=== PATIENT | female | born 1995 | race Two or more races ===

== ENCOUNTER 2018-01-22 05:49 | Emergency (ER) | payer BC ==
[2018-01-22] MEDS ORDERED: Ketorolac 30 MG/ML SDV IVPUSH ONE (06:08)
[2018-01-22] MEDS ORDERED: Ketorolac 30 MG/ML SDV ONE (06:10)
[2018-01-22] MEDS ORDERED: Sodium Chloride 0.9% 1,000 ML IV SCH (06:15)
--- NOTE | 2018-01-22 06:19 | EDM.PDOC ---
<SebastianRicco Pretty - Last Filed: 01/22/18 06:17> ED HPI GENERAL MEDICAL PROBLEM - General Chief Complaint: Abdominal Pain Stated Complaint: ABDOMINAL PAIN Time Seen by Provider: 01/22/18 06:16 - History of Present Illness INITIAL COMMENTS - FREE TEXT/NARRATIVE: HISTORY AND PHYSICAL: History of present illness: Patient's 22-year-old female history of polycystic ovarian disease who presents with concern of acute abdominal pain she is scheduled for EGD today. No fever chills vaginal discharge or irregular bleeding other complaints Review of systems: As per history of present illness and below otherwise all systems reviewed and negative. Past medical history: As per history of present illness and as reviewed below otherwise noncontributory. Surgical history: As per history of present illness and as reviewed below otherwise noncontributory. Social history: No reported history of drug or alcohol abuse. Family history: As per history of present illness and as reviewed below otherwise noncontributory. Physical exam: HEENT: Atraumatic, normocephalic, pupils reactive, negative for conjunctival pallor or scleral icterus, mucous membranes moist, throat clear, neck supple, nontender, trachea midline. Lungs: Clear to auscultation, breath sounds equal bilaterally, chest nontender. Heart: S1S2, regular, negative for clicks, rubs, or JVD. Abdomen: Soft, nondistended, no localized tenderness no rebound no guarding. Negative for masses or hepatosplenomegaly. Negative for costovertebral tenderness. Pelvis: Stable nontender. Genitourinary: Deferred. Rectal: Deferred. Extremities: Atraumatic, negative for cords or calf pain. Neurovascular unremarkable. Neuro: Awake, alert, oriented. Cranial nerves II through XII unremarkable. Cerebellum unremarkable. Motor and sensory unremarkable throughout. Exam nonfocal. Diagnostics: CBC CMP UA hCG UDS pelvic ultrasound Therapeutics: Saline 1 L bolus Toradol 30 mg IV Impression: #1 abdominal pain #2 history of polycystic ovarian disease Definitive disposition and diagnosis as appropriate pending reevaluation and review of above. abdomen Pain Score (Numeric/FACES): 10 - Related Data Allergies Allergy/AdvReac Type Severity Reaction Status Date / Time No Known Allergies Allergy Verified 01/22/18 05:57 Home Meds: Home Meds Albuterol [Proair HFA] 1 - 2 puff INH ASDIRECTED PRN 01/19/18 [History] Levonorgestrel [Mirena] 1 device VAG ONETIME 01/19/18 [History] Montelukast Sodium 10 mg PO BEDTIME 01/19/18 [History] Pantoprazole Sodium 40 mg PO DAILY 01/19/18 [History] Venlafaxine [Venlafaxine HCl ER] 225 mg PO DAILY 01/19/18 [History] clonazePAM [Clonazepam] 1 - 2 tab PO BID PRN 01/19/18 [History] Past Medical History HEENT History: Reports: None Cardiovascular History: Reports: None Respiratory History: Reports: None Gastrointestinal History: Reports: None Genitourinary History: Reports: None 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: Reports: Polycystic Ovaries Musculoskeletal History: Reports: None Neurological History: Reports: None Psychiatric History: Reports: None Endocrine/Metabolic History: Reports: None Hematologic History: Reports: None Oncologic (Cancer) History: Reports: None Dermatologic History: Reports: None - Infectious Disease History Infectious Disease History: Reports: None - Past Surgical History Female Surgical History: Reports: None Social & Family History - Family History Family Medical History: Noncontributory - Tobacco Use Smoking Status *Q: Current Every Day Smoker Years of Tobacco use: 10 Packs/Tins Daily: 1 - Recreational Drug Use Recreational Drug Use: No ED ROS GENERAL - Review of Systems Review Of Systems: ROS reveals no pertinent complaints other than HPI. ED EXAM, GENERAL - Physical Exam Exam: See Below (The dictation) Course - Vital Signs Last Recorded V/S: Last Vital Signs Temp 98 F 01/22/18 05:57 Pulse 93 01/22/18 07:48 Resp 18 01/22/18 07:48 BP 115/70 01/22/18 07:48 Pulse Ox 97 01/22/18 07:48 - Orders/Labs/Meds Orders: Active Orders 24 hr Category Date Time Status Abdomen Ltd [US] Stat Exams 01/22/18 06:06 Taken Abdomen Pelvis w wo Cont [CT] Stat Exams 01/22/18 07:13 Taken DRUG SCREEN, URINE [URCHEM] Stat Lab 01/22/18 06:45 Ordered HCG QUALITATIVE,URINE [URCHEM] Stat Lab 01/22/18 06:45 Ordered UA W/MICROSCOPIC [URIN] Stat Lab 01/22/18 06:45 Ordered Sodium Chloride 0.9% [Normal Saline] 1,000 ml Med 01/22/18 06:15 Active IV STAT traMADol [Ultram] Med 01/22/18 08:41 Once 100 mg PO ONETIME ONE Medication Orders Sodium Chloride (Normal Saline) 1,000 mls @ 999 mls/hr IV STAT TIFFANIE Last Admin: 01/22/18 06:00 Dose: 999 mls/hr Labs: Laboratory Tests 01/22/18 01/22/18 01/22/18 Range/Units 05:55 05:55 06:45 WBC 14.99 H (4.0-11.0) K/uL RBC 5.28 (4.30-5.90) M/uL Hgb 15.7 (12.0-16.0) g/dL Hct 44.7 (36.0-46.0) % MCV 84.7 (80.0-98.0) fL MCH 29.7 (27.0-32.0) pg MCHC 35.1 (31.0-37.0) g/dL RDW Std Deviation 40.2 (28.0-62.0) fl RDW Coeff of Tarun 13 (11.0-15.0) % Plt Count 361 (150-400) K/uL MPV 9.70 (7.40-12.00) fL Neut % (Auto) 65.5 (48.0-80.0) % Lymph % (Auto) 22.2 (16.0-40.0) % Vernon % (Auto) 7.7 (0.0-15.0) % Eos % (Auto) 4.4 (0.0-7.0) % Baso % (Auto) 0.2 (0.0-1.5) % Neut # (Auto) 9.8 H (1.4-5.7) K/uL Lymph # (Auto) 3.3 H (0.6-2.4) K/uL Vernon # (Auto) 1.2 H (0.0-0.8) K/uL Eos # (Auto) 0.7 (0.0-0.7) K/uL Baso # (Auto) 0.0 (0.0-0.1) K/uL Nucleated RBC % 0.0 /100WBC Nucleated RBCs # 0 K/uL Sodium 140 (136-145) mmol/L Potassium 3.9 (3.5-5.1) mmol/L Chloride 107 (98-107) mmol/L Carbon Dioxide 20.5 L (21.0-32.0) mmol/L BUN 9 (7.0-18.0) mg/dL Creatinine 0.9 (0.6-1.0) mg/dL Est Cr Clr Drug Dosing 85.38 mL/min Estimated GFR (MDRD) > 60.0 ml/min Glucose 99 (74-106) mg/dL Calcium 9.0 (8.5-10.1) mg/dL Total Bilirubin 0.4 (0.2-1.0) mg/dL AST 14 L (15-37) IU/L ALT 26 (14-63) IU/L Alkaline Phosphatase 107 (46-116) U/L Total Protein 7.7 (6.4-8.2) g/dL Albumin 3.6 (3.4-5.0) g/dL Globulin 4.1 H (2.0-3.5) g/dL Albumin/Globulin Ratio 0.9 L (1.3-2.8) Amylase 33 (25-115) U/L Lipase 80 (73-393) U/L Urine Color ORANGE Urine Appearance CLOUDY Urine pH 5.5 (5.0-8.0) Ur Specific [place] >= 1.030 (1.001-1.035) Urine Protein 30 (NEGATIVE) mg/dL Urine Glucose (UA) NEGATIVE (NEGATIVE) mg/dL Urine Ketones NEGATIVE (NEGATIVE) mg/dL Urine Occult Blood LARGE H (NEGATIVE) Urine Nitrite NEGATIVE (NEGATIVE) Urine Bilirubin SMALL H (NEGATIVE) Urine Ictotest NEGATIVE Urine Urobilinogen 0.2 (<2.0) EU/dL Ur Leukocyte Esterase SMALL (NEGATIVE) Urine RBC 70-80 (0-2/HPF) Urine WBC 3-5 (0-5/HPF) Ur Epithelial Cells FEW (NONE-FEW) Urine Bacteria FEW (NEGATIVE) Urine Mucus LIGHT (NONE-MOD) Urine HCG, Qual (NEGATIVE) Urine Opiates Screen (NEGATIVE) Ur Oxycodone Screen (NEGATIVE) Urine Methadone Screen (NEGATIVE) Ur Barbiturates Screen (NEGATIVE) Ur Phencyclidine Scrn (NEGATIVE) Ur Amphetamine Screen (NEGATIVE) U Methamphetamines Scrn (NEGATIVE) U Benzodiazepines Scrn (NEGATIVE) U Cocaine Metab Screen (NEGATIVE) U Marijuana (THC) Screen (NEGATIVE) 01/22/18 01/22/18 Range/Units 06:45 06:45 WBC (4.0-11.0) K/uL RBC (4.30-5.90) M/uL Hgb (12.0-16.0) g/dL Hct (36.0-46.0) % MCV (80.0-98.0) fL MCH (27.0-32.0) pg MCHC (31.0-37.0) g/dL RDW Std Deviation (28.0-62.0) fl RDW Coeff of Tarun (11.0-15.0) % Plt Count (150-400) K/uL MPV (7.40-12.00) fL Neut % (Auto) (48.0-80.0) % Lymph % (Auto) (16.0-40.0) % Vernon % (Auto) (0.0-15.0) % Eos % (Auto) (0.0-7.0) % Baso % (Auto) (0.0-1.5) % Neut # (Auto) (1.4-5.7) K/uL Lymph # (Auto) (0.6-2.4) K/uL Vernon # (Auto) (0.0-0.8) K/uL Eos # (Auto) (0.0-0.7) K/uL Baso # (Auto) (0.0-0.1) K/uL Nucleated RBC % /100WBC Nucleated RBCs # K/uL Sodium (136-145) mmol/L Potassium (3.5-5.1) mmol/L Chloride (98-107) mmol/L Carbon Dioxide (21.0-32.0) mmol/L BUN (7.0-18.0) mg/dL Creatinine (0.6-1.0) mg/dL Est Cr Clr Drug Dosing mL/min Estimated GFR (MDRD) ml/min Glucose (74-106) mg/dL Calcium (8.5-10.1) mg/dL Total Bilirubin (0.2-1.0) mg/dL AST (15-37) IU/L ALT (14-63) IU/L Alkaline Phosphatase (46-116) U/L Total Protein (6.4-8.2) g/dL Albumin (3.4-5.0) g/dL Globulin (2.0-3.5) g/dL Albumin/Globulin Ratio (1.3-2.8) Amylase (25-115) U/L Lipase (73-393) U/L Urine Color Urine Appearance Urine pH (5.0-8.0) Ur Specific [place] (1.001-1.035) Urine Protein (NEGATIVE) mg/dL Urine Glucose (UA) (NEGATIVE) mg/dL Urine Ketones (NEGATIVE) mg/dL Urine Occult Blood (NEGATIVE) Urine Nitrite (NEGATIVE) Urine Bilirubin (NEGATIVE) Urine Ictotest Urine Urobilinogen (<2.0) EU/dL Ur Leukocyte Esterase (NEGATIVE) Urine RBC (0-2/HPF) Urine WBC (0-5/HPF) Ur Epithelial Cells (NONE-FEW) Urine Bacteria (NEGATIVE) Urine Mucus (NONE-MOD) Urine HCG, Qual NEGATIVE (NEGATIVE) Urine Opiates Screen NEGATIVE (NEGATIVE) Ur Oxycodone Screen NEGATIVE (NEGATIVE) Urine Methadone Screen NEGATIVE (NEGATIVE) Ur Barbiturates Screen NEGATIVE (NEGATIVE) Ur Phencyclidine Scrn POSITIVE (NEGATIVE) Ur Amphetamine Screen NEGATIVE (NEGATIVE) U Methamphetamines Scrn NEGATIVE (NEGATIVE) U Benzodiazepines Scrn NEGATIVE (NEGATIVE) U Cocaine Metab Screen NEGATIVE (NEGATIVE) U Marijuana (THC) Screen NEGATIVE (NEGATIVE) Meds: Medications Generic Name Dose Route Start Last Admin Trade Name Freq PRN Reason Stop Dose Admin Sodium Chloride 1,000 mls @ 999 mls/hr 01/22/18 06:15 01/22/18 06:00 Normal Saline IV 999 mls/hr STAT TIFFANIE Administration Discontinued Medications Generic Name Dose Route Start Last Admin Trade Name Freq PRN Reason Stop Dose Admin Iopamidol 100 ml 01/22/18 07:26 01/22/18 07:35 Isovue Multipack-370 (76%) IVPUSH 01/22/18 07:27 100 ml ONETIME STA Administration Iopamidol 200 ml 01/22/18 07:34 Isovue Multipack-370 (76%) IVPUSH 01/22/18 07:35 ONETIME STA Ketorolac Tromethamine 30 mg 01/22/18 06:08 01/22/18 06:11 Toradol IVPUSH 01/22/18 06:09 30 mg ONETIME ONE Administration Ketorolac Tromethamine Confirm 01/22/18 06:10 01/22/18 06:20 Toradol Administered 01/22/18 06:11 Not Given Dose 30 mg .ROUTE .STK-MED ONE Departure - Departure Disposition: Home, Self-Care 01 Clinical Impression: Abdominal pain, Ovarian cyst - Discharge Information Referrals: Katalina Ann, SAFETY PIN ASSEMBLING MACHINE OPERATOR [Primary Care Provider] - Forms: ED Department Discharge Additional Instructions: Medication as prescribed Return if symptoms persist or worsen Follow-up with [facility], call phone number below to schedule appropriate follow-up [facility] [address] [address] The following information is given to patients seen in the emergency department who are being discharged to home. This information is to outline your options for follow-up care. We provide all patients seen in our emergency department with a follow-up referral. The need for follow-up, as well as the timing and circumstances, are variable depending upon the specifics of your emergency department visit. If you don't have a primary care physician on staff, we will provide you with a referral. We always advise you to contact your personal physician following an emergency department visit to inform them of the circumstance of the visit and for follow-up with them and/or the need for any referrals to a consulting specialist. The emergency department will also refer you to a specialist when appropriate. This referral assures that you have the opportunity for follow-up care with a specialist. All of these measure are taken in an effort to provide you with optimal care, which includes your follow-up. Under all circumstances we always encourage you to contact your private physician who remains a resource for coordinating your care. When calling for follow-up care, please make the office aware that this follow-up is from your recent emergency room visit. If for any reason you are refused follow-up, please contact the [facility] emergency department at and asked to speak to the emergency department charge nurse. - My Orders Last 24 Hours: My Active Orders 01/22/18 07:13 Abdomen Pelvis w wo Cont [CT] Stat 01/22/18 08:41 traMADol [Ultram] 100 mg PO ONETIME ONE - Assessment/Plan Last 24 Hours: My Active Orders 01/22/18 07:13 Abdomen Pelvis w wo Cont [CT] Stat 01/22/18 08:41 traMADol [Ultram] 100 mg PO ONETIME ONE <Param Sanders - Last Filed: 01/22/18 08:46> ED HPI GENERAL MEDICAL PROBLEM - History of Present Illness INITIAL COMMENTS - FREE TEXT/NARRATIVE: I've seen and examined the patient and agree with above No fever nausea vomiting chills sweats at current Gen. no acute distress HEENT grossly within normal limits Chest clear CV regular Abdodomen soft, no localized tenderness no rebound or guarding bowel sounds present in all 4 quadrants Extremities four-inch motion strength 5 out of 5 no edema LOOM MECHANIC alert nonfocal Lab as below Right upper quadrant ultrasound CT abdomen pelvis with and without contrast Assessment Left ovarian cyst Plan Tramadol 50 mg by mouth 3 times a day when necessary #30 no refill 100 mg by mouth now follow-up with [facility] definitive disposition and diagnosis as appropriate pending reevaluation and review of above Departure - Departure Time of Disposition: 08:45 Condition: Good
[2018-01-22 06:37] LABS: CHLORIDE,CL 107 mmol/L (98-107); SODIUM,NA 140 mmol/L (136-145)
[2018-01-22] MEDS: Iopamidol 755 MG/ML 500 ML Multipack Bottle IVPUSH STA ×2 (07:26→07:35)
[2018-01-22] MEDS ORDERED: Iopamidol 755 MG/ML 200 ML Multipack Bottle IVPUSH STA (07:34)
[2018-01-22] MEDS: traMADol 50 MG Tab PO ONE ×2 (09:00→09:04)
--- NOTE | 2018-01-22 13:00 | US ---
EXAM DATE: 01/22/18 PATIENT'S AGE: 22 Patient: MALOU BURGOS Facility: [place], [place] Site . Site : 1996 Study: US Abdomen [id number]/3/2018 6:53:11 AM Ordering Physician: Sebastian Chacko Final Report: INDICATION: Abdominal pain TECHNIQUE: Ultrasound abdomen limited. Sonographic images of the right upper quadrant were obtained using gómez-scale and color Doppler images. COMPARISON: None FINDINGS: Liver: Normal in size and echotexture. No masses. No intrahepatic biliary dilatation. Gallbladder: No stones or sludge. Normal wall thickness. No pericholecystic fluid. Common bile duct: 3 mm. Pancreas: Normal. Right kidney: Normal in size. Normal echotexture and cortex. No masses, stones, or hydronephrosis. IMPRESSION: Unremarkable right upper quadrant ultrasound. Dictated by Eddie Cardona MD @ Jan 22 2018 6:53AM (Electronic Signature) Report Signed by Proxy. LOUIE
--- NOTE | 2018-01-22 13:01 | CT ---
EXAM DATE: 01/22/18 PATIENT'S AGE: 22 Patient: MALOU BURGOS Facility: [place], [place] Site . Site : 1995 Study: CT Abdomen/Pelvis W/ and W/O Cont [id number]/3/2018 7:46:12 AM Ordering Physician: Sebastian Chacko Final Report: INDICATION: Abdominal pain TECHNIQUE: CT abdomen and pelvis acquired without and with 100 cc Isovue 370 IV contrast. COMPARISON: None. FINDINGS: Lower chest: Unremarkable. Liver: Unremarkable. Normal in size and attenuation. No masses. Gallbladder and bile ducts: Unremarkable. No stones or inflammation. No biliary dilatation. Pancreas: Unremarkable. No mass or inflammation. Spleen: Unremarkable. Normal in size. No masses. Adrenal glands: Unremarkable. No nodules. Kidneys: Unremarkable. No masses, stones, or hydronephrosis. GI tract: Unremarkable. Normal in caliber. No sign of mass or inflammation. Normal appendix. Vasculature: Unremarkable. Lymph nodes: No lymphadenopathy. Omentum/Peritoneum/Abdominal Wall: Unremarkable. No sign of mass or infiltration. No free air or significant free fluid. Pelvis: IUD appears in satisfactory position. There is a 3.5 cm simple left ovarian cyst. Right ovary is normal. Bones: Unremarkable for age. IMPRESSION: 1. Left ovarian simple 3.5 cm cyst without evidence of rupture. 2. Remainder of the exam is unremarkable. No other acute or specific finding to explain abdomen pain. Please note that all CT scans at this facility use dose modulation, iterative reconstruction, and/or weight-based dosing when appropriate to reduce radiation dose to as low as reasonably achievable. Dictated by Eddie Cardona MD @ Jan 22 2018 8:01AM (Electronic Signature) Report Signed by Proxy. [facility]
== END 2018-01-22 09:04 | disposition home or self-care (01) ==
LOC: MW.ED 05:49
DX: N83.202 Unspecified ovarian cyst, left side (principal); F17.210 Nicotine dependence, cigarettes, uncomplicated; Z79.899 Other long term (current) drug therapy
CPT/HCPCS: 36415; 74178; 76705; 80053; 80305; 81001; 81025; 82150; 83690; 85025; 96361; 96374; 99284; J1885; J7040; Q9967; 99283; A9270-GY

== ENCOUNTER 2018-06-01 06:43 | Day surgery (SDC) | payer BC ==
[~2018-06-01 06:43] MED LIST: Lactated Ringers 1,000 ML IV SCH
--- NOTE | 2018-06-01 07:17 | PCM.PREANE ---
Preanesthetic Assessment - Anesthesia/Transfusion/Family Hx Anesthesia History: No Prior Anesthesia Family History of Anesthesia Reaction: No Transfusion History: No Prior Transfusion(s) - Review of Systems General: No Symptoms Pulmonary: No Symptoms Cardiovascular: No Symptoms Gastrointestinal: No Symptoms Neurological: No Symptoms Other: Reports: Anxiety - Physical Assessment NPO Status Date: 05/31/18 Height: 1.63 m Weight: 116.12 kg ASA Class: 2 Mental Status: Alert & Oriented x3 Airway Class: Mallampati = 2 Dentition: Reports: Normal Dentition ROM/Head Extension: Full Lungs: Clear to Auscultation, Normal Respiratory Effort Cardiovascular: Regular Rate, Regular Rhythm - Lab Values: Laboratory Last Values WBC 6.97 K/uL (4.0-11.0) 05/31/18 13:39 RBC 4.88 M/uL (4.30-5.90) 05/31/18 13:39 Hgb 14.2 g/dL (12.0-16.0) 05/31/18 13:39 Hct 41.6 % (36.0-46.0) 05/31/18 13:39 MCV 85.2 fL (80.0-98.0) 05/31/18 13:39 MCH 29.1 pg (27.0-32.0) 05/31/18 13:39 MCHC 34.1 g/dL (31.0-37.0) 05/31/18 13:39 RDW Std Deviation 43.8 fl (28.0-62.0) 05/31/18 13:39 RDW Coeff of Tarun 14 % (11.0-15.0) 05/31/18 13:39 Plt Count 323 K/uL (150-400) 05/31/18 13:39 MPV 9.20 fL (7.40-12.00) 05/31/18 13:39 Nucleated RBC % 0.0 /100WBC 05/31/18 13:39 Nucleated RBCs # 0 K/uL 05/31/18 13:39 HCG, Qual NEGATIVE (NEG) 05/31/18 13:39 - Allergies Allergies/Adverse Reactions: Allergies Allergy/AdvReac Type Severity Reaction Status Date / Time No Known Allergies Allergy Verified 05/28/18 09:46 - Anesthesia Plan Pre-Op Medication Ordered: None - Acknowledgements Anesthesia Type Planned: MAC Pt an Appropriate Candidate for the Planned Anesthesia: Yes Alternatives and Risks of Anesthesia Discussed w Pt/Guardian: Yes Pt/Guardian Understands and Agrees with Anesthesia Plan: Yes Additional Comments: PMH: PCOS, anxiety, GERD, migraine, PreAnesthesia Questionnaire HEENT History: Reports: None Cardiovascular History: Reports: None Respiratory History: Reports: Asthma Gastrointestinal History: Reports: GERD Genitourinary History: Reports: None BENEFITS CONSULTANT History: Reports: Endometriosis, Polycystic Ovaries Musculoskeletal History: Reports: None Neurological History: Reports: Migraines Psychiatric History: Reports: Anxiety, Depression Endocrine/Metabolic History: Reports: Hypothyroidism, Obesity/BMI 30+ Hematologic History: Reports: None Immunologic History: Reports: None Oncologic (Cancer) History: Reports: None Dermatologic History: Reports: None - Infectious Disease History Infectious Disease History: Reports: None - Past Surgical History Head Surgeries/Procedures: Reports: None Female Surgical History: Reports: None - SUBSTANCE USE Smoking Status *Q: Light Tobacco Smoker Tobacco Use Within Last Twelve Months: Cigarettes Recreational Drug Use History: No - HOME MEDS Home Medications: Home Meds Albuterol [Proventil Neb Soln] 1.25 mg NEB Q2H PRN 04/20/18 [History] Venlafaxine HCl [Venlafaxine HCl ER] 225 mg PO DAILY 04/20/18 [History] ARIPiprazole [Abilify] 10 mg PO DAILY 05/28/18 [History] Albuterol Sulfate [Proair Hfa] 2 puff INH ASDIRECTED PRN 05/28/18 [History] Loratadine [Claritin] 10 mg PO DAILY 05/28/18 [History] Melatonin 10 mg SL BEDTIME 05/28/18 [History] Montelukast [Singulair] 10 mg PO DAILY 05/28/18 [History] Pantoprazole Sodium 40 mg PO DAILY 05/28/18 [History] Sucralfate 1 tab PO TID 05/28/18 [History] clonazePAM [Clonazepam] 1 - 2 tab PO BID PRN 05/28/18 [History] - CURRENT (IN HOUSE) MEDS Current Meds: Current Medications Lactated Ringer's (Ringers, Lactated) 1,000 mls @ 125 mls/hr IV ASDIRECTED TIFFANIE Last Admin: 06/01/18 07:13 Dose: 125 mls/hr
[2018-06-01] MEDS ORDERED: Rocuronium 10 MG/ML 10 ML Syringe ONE (07:21)
[2018-06-01] MEDS ORDERED: Lidocaine 2% 5 ML SDV ONE (07:21)
[2018-06-01] MEDS ORDERED: Ondansetron 4 MG/2 ML SDV ONE (07:21)
[2018-06-01] MEDS ORDERED: Midazolam 1 MG/ML 2 ML SDV ONE ×2 (07:22)
[2018-06-01] MEDS ORDERED: Ketamine 500 mg/10 ML MDV ONE (07:22)
[2018-06-01] MEDS ORDERED: Propofol 200 MG/20 ML SDV ONE (07:22)
[2018-06-01] MEDS ORDERED: fentaNYL 250 MCG/5 ML SDV ONE (07:22)
[2018-06-01] MEDS ORDERED: Bupivacaine 0.25% 10 ML SDV ONE (07:39)
[2018-06-01] MEDS ORDERED: diphenhydrAMINE 50 MG/ML SDV ONE (07:42)
[2018-06-01] MEDS ORDERED: Dexamethasone 4 MG/ML 5 ML MDV ONE (07:42)
[2018-06-01] MEDS ORDERED: Scopolamine 1.5 MG Transdermal Patch ONE (07:42)
[2018-06-01] MEDS ORDERED: fentaNYL 100 MCG/2 ML SDV IVPUSH PRN (08:50)
[2018-06-01] MEDS ORDERED: HYDROmorphone 2 MG/ML SDV IVPUSH PRN (08:50)
[2018-06-01] MEDS ORDERED: Glycopyrrolate 0.2 MG/ML SDV ONE (09:20)
[2018-06-01] MEDS ORDERED: Neostigmine Methylsulfate 1 MG/ML 5 ML Syringe ONE (09:20)
--- NOTE | 2018-06-01 09:44 | PCM.OPNOTE ---
- General Post-Op/Procedure Note Date of Surgery/Procedure: 06/01/18 Operative Procedure(s): Operative laparoscopy, adhesiolysis of left ovarian/ uterine/mesenteric adhesions, left ovarian cyst aspiration, left ovary biopsy Findings: Dense left ovarian/uterine/mesenteric adhesions. No specific endometriosis implants visualized. Pre Op Diagnosis: Pelvic pain Post-Op Diagnosis: Same Anesthesia Technique: General ET Tube Primary Surgeon: Dalila [place] Tax Assessor: Richard Whitley Pathology: ovarian cyst fluid and left ovarian biopsy Fluid Replacement, Intraop: 2,800 EBL in mLs: 25 Complications: none known Condition: Good Free Text/Narrative:: Dictation [id number]
--- NOTE | 2018-06-01 10:32 | PCM.POSTAN ---
POST ANESTHESIA ASSESSMENT - MENTAL STATUS Mental Status: Alert, Oriented - RESPIRATORY Respiratory Status: Respiratory Rate WNL, Airway Patent, O2 Saturation Stable - CARDIOVASCULAR CV Status: Pulse Rate WNL, Blood Pressure Stable - GASTROINTESTINAL GI Status: No Symptoms - PAIN Pain Score: 5 (resting comfortably) - POST OP HYDRATION Hydration Status: Adequate & Stable - OBSERVATIONS Free Text/Narrative:: No nausea and pain appears well controlled
--- NOTE | 2018-06-01 10:40 | PCM48HPAN ---
Post Anesthesia Note - EVALUATION WITHIN 48HRS OF ANESTHETIC Vital Signs in Normal Range: Yes Patient Participated in Evaluation: Yes Respiratory Function Stable: Yes Airway Patent: Yes Cardiovascular Function Stable: Yes Hydration Status Stable: Yes Pain Control Satisfactory: Yes Nausea and Vomiting Control Satisfactory: Yes Mental Status Recovered: Yes Resp Rate: 21
[2018-06-01] MEDS ORDERED: Acetaminophen/oxyCODONE 325-5 MG Tab PO ONE (11:18)
--- NOTE | 2018-06-01 13:17 | OR ---
SURGEON: Dalila Mckinney M.D. DATE OF PROCEDURE: 06/01/2018 PREOPERATIVE DIAGNOSIS: Pelvic pain. POSTOPERATIVE DIAGNOSIS: Pelvic pain. PROCEDURES: Operative laparoscopy; adhesiolysis of left ovarian, uterine, mesenteric adhesion; left ovarian cyst aspiration; left ovarian biopsy. DOCUMENT COORDINATOR: VICKI Mendoza. ANESTHESIA: General endotracheal anesthesia. FLUIDS: 2800 mL crystalloid. ESTIMATED BLOOD LOSS: 25 mL. COMPLICATIONS: None known. DISPOSITION: The patient to PACU stable. SPECIMEN: To pathology. PROCEDURE IN DETAIL: Leyla is a 23-year-old nulligravida who has ongoing difficulties with pelvic pain for a number of years. She has tried different pathology treatment in form of combination of hormone therapy with OCPs, Depo-Provera, NSAIDs with no relief of her symptomatology. At this juncture, she has not undergone any further evaluation surgically. Pelvic ultrasound has been notably normal. Therefore, at this time, we discussed proceeding with further evaluation with laparoscopy. She very much would like to proceed in this direction. The risks of procedure were discussed with her, proper consent obtained. The patient was taken to the operating room where she underwent general endotracheal anesthesia and was placed in modified dorsal lithotomy position, was prepped and draped in the usual sterile fashion. SCDs to lower extremities. Bladder was drained. Time-out was performed. A weighted speculum was introduced in the vagina. Uterine Hulka manipulator was gently introduced and the speculum was removed. Gloves changed. Attention turned abdominally. Infraumbilically, 0.25% Marcaine was introduced followed by infraumbilical midline sagittal 5 mm skin incision. The anterior abdominal wall tented upward. A Veress needle gently introduced and pneumoperitoneum was achieved. The Veress needle was removed. A 5-mm trocar was introduced, laparoscope was introduced, and peritoneal contents were identified. With Trendelenburg positioning, uterus was able to be mobilized. Placed a left lower quadrant trocar after prepping the region with 0.25% Marcaine creating 5 mm skin incision. Using grasper, I was able to further evaluate the pelvic anatomy. Overall, the uterus was mobile. The right tube and ovary appeared normal as well as the pelvic sidewalls, anterior, and posterior cul-de-sac. However, the left ovary is significantly adhesed to the posterior uterus from the mesentery. Therefore, using dissection bluntly and with the Harmonic Jose, I was able to perform adhesiolysis for approximately 35 minutes. At this juncture, I was able to mobilize and free the ovary. The pelvis was now copiously irrigated. There appears to be a physiologic left ovarian cyst present, this was gently drained using an 18-mm laparoscopic needle. Clear fluid was returned, to be sent to Pathology for further analysis. Left ovarian biopsy was also performed, the specimen will to be sent to pathology. The pelvis continued to be copiously irrigated. As noted, no other lesions or implants were visualized. Upper abdomen reveals no pathology. The areas of oozing were cauterized and then the ovary was wrapped in Surgicel. Hemostasis appeared evident at this time. The pneumoperitoneum was now released. The right and left lower quadrant trocars removed under direct visualization. The laparoscope was removed as well as the infraumbilical trocar after as much of the pneumoperitoneum as possible was able to be released from the abdominal cavity. The skin edges were reapproximated using 3-0 Monocryl in subcuticular fashion. Dressings were placed. The Hulka uterine manipulator was now gently removed. The cervix was visualized and appeared to be hemostatic. Sponge, instrument, and needle count was correct x2. The patient tolerated the procedure well overall. She will go to PACU in stable condition. Specimens to pathology. BRYON FITZGERALD /[id number]
== END 2018-06-01 14:15 | disposition home or self-care (01) ==
LOC: MW.SDS 06:43
PROVIDERS: ATTEND Obstetrics & Gynecology
DX: R10.2 Pelvic and perineal pain (principal); N83.02 Follicular cyst of left ovary; N73.6 Female pelvic peritoneal adhesions (postinfective); J45.909 Unspecified asthma, uncomplicated; E66.9 Obesity, unspecified; Z68.41 Body mass index [BMI] 40.0-44.9, adult; F17.210 Nicotine dependence, cigarettes, uncomplicated; E03.9 Hypothyroidism, unspecified; G50.0 Trigeminal neuralgia; E28.2 Polycystic ovarian syndrome; F41.8 Other specified anxiety disorders; Z79.84 Long term (current) use of oral hypoglycemic drugs; Z79.899 Other long term (current) drug therapy
CPT/HCPCS: 49321; 49322; 84703; 85027; 88104; 88305; A9270; J1100; J1200; J2250; J2405; J2704; J3010; J3490; J7120; 00840

== ENCOUNTER 2018-06-04 05:13 | Emergency (ER) | payer BC ==
--- NOTE | 2018-06-04 05:21 | EDM.PDOC ---
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 Mckinney during which she had adhesional lysis performed of areas at the left ovary, left uterine wall and left mesenteric adhesions as well as a left ovarian cyst aspiration and left ovarian biopsy. Patient presents today to the ED stating that since the surgery she has had vaginal spotting that she was told to expect but then yesterday she noticed that she was passing clots and contacted the clinic office to discuss the situation with Dr. Mckinney's nurse. She was told to be on bed rest and push hydration and to monitor the symptoms and if they continue to come to the ED. She says she is continuing to pass clots and feels that she has had more bleeding than should be expected and she has diffuse lower abdominal/pelvic pain. She's not had a fever nausea or vomiting but she says that she is having trouble passing her urine and she feels like she has to push it out. She also says there is discomfort with urination but no discrete flank pain. According to mom at bedside the surgery was very complicated due to the significant amount of adhesions on the left side and the size of the left ovarian cyst. She is currently taking pain meds for pain. The patient did talk to the clinic nurse yesterday but she has not spoken to the on-call physician about her symptoms that brought her here this morning. She says that from when she talked to the nurse yesterday afternoon until 1 AM she was using 2 pads an hour and from 1 AM until 5 AM 4 pads an hour and passing half-dollar size clots intermittently. Review of systems: As per history of present illness and below otherwise all systems reviewed and negative. Past medical history: As per history of present illness and as reviewed below otherwise noncontributory. Surgical history: As per history of present illness and as reviewed below otherwise noncontributory. Social history: No reported history of drug or alcohol abuse. Family history: As per history of present illness and as reviewed below otherwise noncontributory. Physical exam: General: Well-developed well-nourished overweight female who is nontoxic and vital signs were noted by me. HEENT: Atraumatic, normocephalic, , negative for conjunctival pallor or scleral icterus, mucous membranes moist, throat clear, neck supple, nontender, trachea midline. Lungs: Clear to auscultation, breath sounds equal bilaterally, chest nontender. Heart: S1S2, regular rate and rhythm no overt murmurs Abdomen: Soft, nondistended, the incision from the laparoscopy are clean and dry with dressings intact and there is some ecchymosis seen in the anterior inferior abdominal wall. There is hypoactive bowel sounds and diffuse lower abdominal tenderness on palpation without any focality. Negative for masses or hepatosplenomegaly. Pelvis: Stable nontender. Genitourinary: External genitalia are within normal limits. There is a small amount of blood and clot in the vaginal vault and the cervix is nulliparous appearing with a slight trickle per os but no aggressive bleeding. The uterus is difficult to evaluate as the patient doesn't tolerate the exam well due to abdominal discomfort. Rectal: Deferred. Extremities: Atraumatic, negative for cords or calf pain. Neurovascular unremarkable. Neuro: Awake, alert, oriented. Cranial nerves II through XII unremarkable. Cerebellum unremarkable. Motor and sensory unremarkable throughout. Exam nonfocal. Diagnostics: CBC CMP hCG UA orthostatic vitals bladder scan Therapeutics: IV IV fluids Patient's bladder scan revealed 150 mL of urine and the patient is currently voiding for urine sample. Orthostatic vitals were positive for heart rate but blood pressure did not change with the heart rate going from 73 laying to standing at 110 and no significant change in blood pressure. She felt a little lightheaded with position change Patient's hemoglobin on the day of her surgery was 14.2 and today it is 12.6 and on a prior visit at the end of March it was 13.7 0608: Case was d/w Dr Vidal who is going to pull up her records and recontact me with a plan. 0625: Dr Vidal has reviewed the patient's records and would like a pelvic ultrasound to be done. From the operative report she does not feel that any significant bleeding would have come from this surgery and would like to just be safe and do the ultrasound. She feels that this may likely be the patient's menstrual cycle. She would like to be recontacted with that test result and will also send a message to Dr. Mckinney's nurse. If the ultrasound is negative she feels that the patient is safe to go home. 0700: Pelvic ultrasound was ordered and endorsed to Dr. Helton. She will follow up this result and recontact Dr. Vidal with the testing results and plan for disposition according to those results and her instructions. Impression: Postoperative vaginal bleeding status post laparoscopy with lysis of adhesions and ovarian cyst decompression Definitive disposition and diagnosis as appropriate pending reevaluation and review of above. Bilateral Lower Abdominal Pain Score (Numeric/FACES): 8 - Related Data Allergies Allergy/AdvReac Type Severity Reaction Status Date / Time No Known Allergies Allergy Verified 05/28/18 09:46 Home Meds: Home Meds Albuterol [Proventil Neb Soln] 1.25 mg NEB Q2H PRN 04/20/18 [History] Venlafaxine HCl [Venlafaxine HCl ER] 225 mg PO DAILY 04/20/18 [History] ARIPiprazole [Abilify] 10 mg PO DAILY 05/28/18 [History] Albuterol Sulfate [Proair Hfa] 2 puff INH ASDIRECTED PRN 05/28/18 [History] Loratadine [Claritin] 10 mg PO DAILY 05/28/18 [History] Melatonin 10 mg SL BEDTIME 05/28/18 [History] Montelukast [Singulair] 10 mg PO DAILY 05/28/18 [History] Pantoprazole Sodium 40 mg PO DAILY 05/28/18 [History] Sucralfate 1 tab PO TID 05/28/18 [History] clonazePAM [Clonazepam] 1 - 2 tab PO BID PRN 05/28/18 [History] Past Medical History HEENT History: Reports: None Cardiovascular History: Reports: None Respiratory History: Reports: Asthma Gastrointestinal History: Reports: GERD Genitourinary History: Reports: None [employer]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[employer] History: Reports: Endometriosis, Polycystic Ovaries Musculoskeletal History: Reports: None Neurological History: Reports: Migraines Psychiatric History: Reports: Anxiety, Depression Endocrine/Metabolic History: Reports: Hypothyroidism, Obesity/BMI 30+ Hematologic History: Reports: None Immunologic History: Reports: None Oncologic (Cancer) History: Reports: None Dermatologic History: Reports: None - Infectious Disease History Infectious Disease History: Reports: None - Past Surgical History Head Surgeries/Procedures: Reports: None Female Surgical History: Reports: None Social & Family History - Family History Family Medical History: Noncontributory ED ROS GENERAL - Review of Systems Review Of Systems: ROS reveals no pertinent complaints other than HPI. ED EXAM, GENERAL - Physical Exam Exam: See Below (see dictation) Course - Vital Signs Last Recorded V/S: Last Vital Signs Temp 98.9 F 06/04/18 05:22 Pulse 78 06/04/18 05:22 Resp 18 06/04/18 05:22 BP 161/85 H 06/04/18 05:22 Pulse Ox 96 06/04/18 05:22 Orthostatic Blood Pressure [ 120/69 Standing] Orthostatic Blood Pressure [ 110/75 Sitting] Orthostatic Blood Pressure [ 115/61 Supine] - Orders/Labs/Meds Orders: Active Orders 24 hr Category Date Time Status Bladder Scan [RC] ASDIRECTED Care 06/04/18 05:36 Active Orthostatic Vital Signs [RC] ASDIRECTED Care 06/04/18 05:36 Active Pelvis Non OB Comp [US] Stat Exams 06/04/18 06:27 Taken Sodium Chloride 0.9% [Normal Saline] 1,000 ml Med 06/04/18 07:45 Active IV .Bolus Sodium Chloride 0.9% [Saline Flush] Med 06/04/18 05:25 Active 10 ml FLUSH ASDIRECTED PRN Sodium Chloride 0.9% [Saline Flush] Med 06/04/18 05:25 Active 2.5 ml FLUSH ASDIRECTED PRN Saline Lock Insert [OM.PC] Stat Oth 06/04/18 05:25 Ordered Medication Orders Sodium Chloride (Normal Saline) 1,000 mls @ 999 mls/hr IV .Bolus ONE Stop: 06/04/18 08:45 Last Admin: 06/04/18 07:50 Dose: 999 mls/hr Sodium Chloride (Saline Flush) 10 ml FLUSH ASDIRECTED PRN PRN Reason: Keep Vein Open Last Admin: 06/04/18 07:51 Dose: 10 ml Sodium Chloride (Saline Flush) 2.5 ml FLUSH ASDIRECTED PRN PRN Reason: Keep Vein Open Last Admin: 06/04/18 07:50 Dose: 2.5 ml Labs: Laboratory Tests 06/04/18 06/04/18 06/04/18 Range/Units 05:42 05:42 05:42 WBC 11.22 H (4.0-11.0) K/uL RBC 4.37 (4.30-5.90) M/uL Hgb 12.6 (12.0-16.0) g/dL Hct 37.6 (36.0-46.0) % MCV 86.0 (80.0-98.0) fL MCH 28.8 (27.0-32.0) pg MCHC 33.5 (31.0-37.0) g/dL RDW Std Deviation 44.3 (28.0-62.0) fl RDW Coeff of Tarun 14 (11.0-15.0) % Plt Count 288 (150-400) K/uL MPV 9.20 (7.40-12.00) fL Neut % (Auto) 57.2 (48.0-80.0) % Lymph % (Auto) 29.8 (16.0-40.0) % [place] % (Auto) 8.9 (0.0-15.0) % Eos % (Auto) 3.7 (0.0-7.0) % Baso % (Auto) 0.4 (0.0-1.5) % Neut # (Auto) 6.4 H (1.4-5.7) K/uL Lymph # (Auto) 3.3 H (0.6-2.4) K/uL [place] # (Auto) 1.0 H (0.0-0.8) K/uL Eos # (Auto) 0.4 (0.0-0.7) K/uL Baso # (Auto) 0.0 (0.0-0.1) K/uL Nucleated RBC % 0.0 /100WBC Nucleated RBCs # 0 K/uL Sodium 138 (136-145) mmol/L Potassium 3.8 (3.5-5.1) mmol/L Chloride 103 (98-107) mmol/L Carbon Dioxide 27.2 (21.0-32.0) mmol/L BUN 9 (7.0-18.0) mg/dL Creatinine 0.8 (0.6-1.0) mg/dL Est Cr Clr Drug Dosing 95.25 mL/min Estimated GFR (MDRD) > 60.0 ml/min Glucose 91 (74-106) mg/dL Calcium 8.8 (8.5-10.1) mg/dL Total Bilirubin 0.3 (0.2-1.0) mg/dL AST 11 L (15-37) IU/L ALT 23 (14-63) IU/L Alkaline Phosphatase 93 (46-116) U/L Total Protein 6.5 (6.4-8.2) g/dL Albumin 3.1 L (3.4-5.0) g/dL Globulin 3.4 (2.0-3.5) g/dL Albumin/Globulin Ratio 0.9 L (1.3-2.8) HCG, Qual NEGATIVE (NEG) Urine Color Urine Appearance Urine pH (5.0-8.0) Ur Specific [place] (1.001-1.035) Urine Protein (NEGATIVE) mg/dL Urine Glucose (UA) (NEGATIVE) mg/dL Urine Ketones (NEGATIVE) mg/dL Urine Occult Blood (NEGATIVE) Urine Nitrite (NEGATIVE) Urine Bilirubin (NEGATIVE) Urine Urobilinogen (<2.0) EU/dL Ur Leukocyte Esterase (NEGATIVE) Urine RBC (0-2/HPF) Urine WBC (0-5/HPF) Ur Epithelial Cells (NONE-FEW) Urine Bacteria (NEGATIVE) 06/04/18 Range/Units 05:52 WBC (4.0-11.0) K/uL RBC (4.30-5.90) M/uL Hgb (12.0-16.0) g/dL Hct (36.0-46.0) % MCV (80.0-98.0) fL MCH (27.0-32.0) pg MCHC (31.0-37.0) g/dL RDW Std Deviation (28.0-62.0) fl RDW Coeff of Tarun (11.0-15.0) % Plt Count (150-400) K/uL MPV (7.40-12.00) fL Neut % (Auto) (48.0-80.0) % Lymph % (Auto) (16.0-40.0) % [place] % (Auto) (0.0-15.0) % Eos % (Auto) (0.0-7.0) % Baso % (Auto) (0.0-1.5) % Neut # (Auto) (1.4-5.7) K/uL Lymph # (Auto) (0.6-2.4) K/uL [place] # (Auto) (0.0-0.8) K/uL Eos # (Auto) (0.0-0.7) K/uL Baso # (Auto) (0.0-0.1) K/uL Nucleated RBC % /100WBC Nucleated RBCs # K/uL Sodium (136-145) mmol/L Potassium (3.5-5.1) mmol/L Chloride (98-107) mmol/L Carbon Dioxide (21.0-32.0) mmol/L BUN (7.0-18.0) mg/dL Creatinine (0.6-1.0) mg/dL Est Cr Clr Drug Dosing mL/min Estimated GFR (MDRD) ml/min Glucose (74-106) mg/dL Calcium (8.5-10.1) mg/dL Total Bilirubin (0.2-1.0) mg/dL AST (15-37) IU/L ALT (14-63) IU/L Alkaline Phosphatase (46-116) U/L Total Protein (6.4-8.2) g/dL Albumin (3.4-5.0) g/dL Globulin (2.0-3.5) g/dL Albumin/Globulin Ratio (1.3-2.8) HCG, Qual (NEG) Urine Color YELLOW Urine Appearance SLT CLOUDY Urine pH 7.0 (5.0-8.0) Ur Specific [place] 1.020 (1.001-1.035) Urine Protein NEGATIVE (NEGATIVE) mg/dL Urine Glucose (UA) NEGATIVE (NEGATIVE) mg/dL Urine Ketones NEGATIVE (NEGATIVE) mg/dL Urine Occult Blood LARGE H (NEGATIVE) Urine Nitrite NEGATIVE (NEGATIVE) Urine Bilirubin NEGATIVE (NEGATIVE) Urine Urobilinogen 1.0 (<2.0) EU/dL Ur Leukocyte Esterase NEGATIVE (NEGATIVE) Urine RBC 110-120 (0-2/HPF) Urine WBC 0-2 (0-5/HPF) Ur Epithelial Cells OCCASIONAL (NONE-FEW) Urine Bacteria OCCASIONAL (NEGATIVE) Meds: Medications Generic Name Dose Route Start Last Admin Trade Name Freq PRN Reason Stop Dose Admin Sodium Chloride 1,000 mls @ 999 mls/hr 06/04/18 07:45 06/04/18 07:50 Normal Saline IV 06/04/18 08:45 999 mls/hr .Bolus ONE Administration Sodium Chloride 10 ml 06/04/18 05:25 06/04/18 07:51 Saline Flush FLUSH 10 ml ASDIRECTED PRN Administration Keep Vein Open Sodium Chloride 2.5 ml 06/04/18 05:25 06/04/18 07:50 Saline Flush FLUSH 2.5 ml ASDIRECTED PRN Administration Keep Vein Open Discontinued Medications Generic Name Dose Route Start Last Admin Trade Name Freq PRN Reason Stop Dose Admin Hydromorphone HCl 0.5 mg 06/04/18 07:44 06/04/18 07:50 Dilaudid IVPUSH 06/04/18 07:45 0.5 mg ONETIME ONE Administration Sodium Chloride 1,000 mls @ 999 mls/hr 06/04/18 05:59 06/04/18 06:06 Normal Saline IV 06/04/18 06:59 999 mls/hr STAT ONE Administration Ondansetron HCl 4 mg 06/04/18 07:45 06/04/18 07:50 Zofran IVPUSH 06/04/18 07:46 4 mg ONETIME ONE Administration Departure - Departure Disposition: Home, Self-Care 01 Condition: Good Clinical Impression: Postoperative vaginal bleeding - Discharge Information Referrals: PCP,None [Primary Care Provider] - Forms: ED Department Discharge Additional Instructions: The following information is given to patients seen in the emergency department who are being discharged to home. This information is to outline your options for follow-up care. We provide all patients seen in our emergency department with a follow-up referral. The need for follow-up, as well as the timing and circumstances, are variable depending upon the specifics of your emergency department visit. If you don't have a primary care physician on staff, we will provide you with a referral. We always advise you to contact your personal physician following an emergency department visit to inform them of the circumstance of the visit and for follow-up with them and/or the need for any referrals to a consulting specialist. The emergency department will also refer you to a specialist when appropriate. This referral assures that you have the opportunity for followup care with a specialist. All of these measure are taken in an effort to provide you with optimal care, which includes your followup. Under all circumstances we always encourage you to contact your private physician who remains a resource for coordinating your care. When calling for followup care, please make the office aware that this follow-up is from your recent emergency room visit. If for any reason you are refused follow-up, please contact the [facility] emergency department at and ask to speak to the emergency department charge nurse. [facility] [address] [address] Push hydration and rest and contact Dr. Mckinney's nurse later this morning to check in and schedule a follow-up appointment. Return to ER as needed and as discussed. - My Orders Last 24 Hours: My Active Orders 06/04/18 07:45 Sodium Chloride 0.9% [Normal Saline] 1,000 ml IV .Bolus - Assessment/Plan Last 24 Hours: My Active Orders 06/04/18 07:45 Sodium Chloride 0.9% [Normal Saline] 1,000 ml IV .Bolus <Vickie Helton - Last Filed: 06/04/18 08:33> ED HPI GENERAL MEDICAL PROBLEM - History of Present Illness INITIAL COMMENTS - FREE TEXT/NARRATIVE: Ultrasound showed no suspicious adnexal masses or ovarian torsion, trace amount of free fluid and uterine corpus/endometrial complex are within normal limits. Patient was given a second liter of normal saline while awaiting ultrasound results and Dilaudid with Zofran she is now comfortable and wishes to go home. Stable while she has been in the ED Departure - Departure Time of Disposition: 08:33
[2018-06-04] MEDS ORDERED: Sodium Chloride 0.9% 2.5 ML Syringe FLUSH PRN (05:25)
[2018-06-04] MEDS ORDERED: Sodium Chloride 0.9% 10 ML Syringe FLUSH PRN (05:25)
[2018-06-04] MEDS ORDERED: Sodium Chloride 0.9% 1,000 ML IV ONE ×2 (05:59→07:45)
[2018-06-04 06:04] LABS: CHLORIDE,CL 103 mmol/L (98-107); SODIUM,NA 138 mmol/L (136-145)
[2018-06-04] MEDS ORDERED: HYDROmorphone 1 MG/ML Syringe IVPUSH ONE (07:44)
[2018-06-04] MEDS ORDERED: Ondansetron 4 MG/2 ML SDV IVPUSH ONE (07:45)
--- NOTE | 2018-06-04 11:01 | US ---
EXAM DATE: 06/04/18 PATIENT'S AGE: 23 Patient: MALOU BURGOS Facility: [place], [place] Site . Site : 1996 Study: US Pelvis [id number]/[id number] 7:45:02 AM Ordering Physician: Jeri Mabry Final Report: INDICATION: BLEEDING AND CLOTS, RECENT LAPAROSCOPY HISTORY: Bleeding and clots. Recent laparoscopy. COMPARISON: Pelvic ultrasound 02/09/2018. Report from this exam is not available for review. TECHNIQUE: Pelvic ultrasound. Endovaginal imaging of the pelvis was obtained to better evaluate the adnexa. Color/spectral Doppler was performed to evaluate for ovarian torsion. FINDINGS: Uterine corpus measures 6.7 x 3.1 x 3.7 cm. There is no endometrial or myometrial mass. The endometrial complex measures 5 mm in thickness. The left ovary measures 3.6 x 2.6 x 3.8 cm. The right ovary measures 3.6 x 3.2 x 3.6 cm. There is a benign follicular cyst in the right ovary measuring 1.7 x 1.2 cm. Normal, low resistance arterial blood flow is preserved to both ovaries on color /spectral Doppler. There is a trace amount of free fluid in the rectovaginal pouch of Ray. IMPRESSION: 1. There is no suspicious adnexal mass or evidence for ovarian torsion. 2. Trace amount of free fluid in the pelvis. 3. Uterine corpus/endometrial complex are within normal limits. Dictated by Nelson Flaherty MD @ 06/04/2018 8:20:28 AM Dictated by: Nelson Flaherty MD @ 06/04/2018 08:20:33 (Electronic Signature) Report Signed by Proxy. LOUIE
== END 2018-06-04 08:54 | disposition home or self-care (01) ==
LOC: MW.ED 05:13
DX: N99.820 Postprocedural hemorrhage of a genitourinary system organ or structure following a genitourinary system procedure (principal); K21.9 Gastro-esophageal reflux disease without esophagitis; F41.9 Anxiety disorder, unspecified; F32.9 Major depressive disorder, single episode, unspecified; E03.9 Hypothyroidism, unspecified; Z79.899 Other long term (current) drug therapy
CPT/HCPCS: 36415; 76856; 80053; 81001; 84703; 85025; 96361; 96374; 96375; 99284; J1170; J2405; J7040; 99283

== ENCOUNTER 2020-02-05 12:30 | Emergency (ER) | payer BC ==
[2020-02-05] MEDS ORDERED: Bacitracin Oint 1 GM U/D Packet TOP ONE (13:02)
--- NOTE | 2020-02-05 13:16 | EDM.PDOC ---
ED HPI GENERAL MEDICAL PROBLEM - General Chief Complaint: Lower Extremity Injury/Pain Stated Complaint: INJURY TO BOTH ANKLES Time Seen by Provider: 02/05/20 12:32 Source of Information: Reports: Patient History Limitations: Reports: No Limitations - History of Present Illness INITIAL COMMENTS - FREE TEXT/NARRATIVE: HISTORY AND PHYSICAL: History of present illness: Patient is a 24-year-old female who presents to the emergency room with complaints of bilateral ankle pain after a fall. She states that she was carrying a box and had stepped off the edge of the patio and rolled both of her ankles. She is concerned that the right ankle may have a fracture, less concerned about the left as she is able to bear weight with minimal discomfort. She denies hitting her head or having any loss of consciousness. Review of systems: As per history of present illness and below otherwise all systems reviewed and negative. Past medical history: As per history of present illness and as reviewed below otherwise noncontributory. Surgical history: As per history of present illness and as reviewed below otherwise noncontributory. Social history: See social history for further information Family history: As per history of present illness and as reviewed below otherwise noncontributory. Physical exam: General: Well-developed and well-nourished 24-year-old female. Alert and oriented. Nontoxic-appearing and in no acute distress. HEENT: Atraumatic, normocephalic, pupils equal and reactive bilaterally, negative for conjunctival pallor or scleral icterus, mucous membranes moist, TMs normal bilaterally, throat clear, neck supple, nontender, trachea midline. No drooling or trismus noted. No meningeal signs. No hot potato voice noted. Lungs: Clear to auscultation, breath sounds equal bilaterally, chest nontender. Heart: S1S2, regular rate and rhythm without overt murmur Abdomen: Soft, nondistended, nontender. Negative for masses or hepatosplenomegaly. Negative for costovertebral tenderness. Pelvis: Stable nontender. Skin: Superficial abrasion noted to the left anterior mid ankle. Otherwise skin is intact, warm, dry. No lesions or rashes noted. C-spine/Back: No pinpoint vertebral tenderness upon palpation. No crepitus, step -offs or obvious deformities. Denies any urinary or fecal incontinence. Denies any numbness, tingling or saddle paresthesia. Extremities: Right lateral malleolus tender with palpation with mild soft tissue swelling. No tenderness with palpation of the left ankle or foot. Moves all extremities per self without difficulty or deficits, negative for cords or calf pain. Negative foot drop. Neurovascular unremarkable. Neuro: Awake, alert, oriented. Cranial nerves II through XII unremarkable. Cerebellum unremarkable. Motor and sensory unremarkable throughout. Exam nonfocal. Notes: She is unsure of her last tetanus update, refuses Tdap today regardless of education. Wound care was provided to the abrasion to the left ankle. She declines wanting an x-ray of the left ankle, will proceed with x-ray of the right. Appears to have no other bodily injury. Denies hitting her head or having any loss of consciousness. Shows soft tissue swelling. There is finding of an old injury but no acute bony abnormalities are noted. Will place patient in a cam walker boot and provide crutches for comfort and nonweightbearing purposes over the next 3 days. We discussed signs and symptoms that would prompt her to follow-up with Ortho and/or return to the emergency room. Supportive care measures were reviewed and discussed. Voices understanding and is agreeable to plan of care. Denies any further questions or concerns at this time. Diagnostics: Ankle x-ray Therapeutics: CAM walker boot, crutches Prescription: Diclofenac (#20) Impression: Fall Ankle Sprain Abrasion Plan: 1. Rest, ice, elevate the affected extremity. Please wear the splint and use crutches as directed. Keep the abrasion clean and dry. 2. Tylenol as needed for pain management. Diclofenac as directed; take with food. Do not take any additional NSAIDs such as ibuprofen or Aleve with this medication. 3. Follow up with the Orthopedic provider as we discussed. Return to the ED as needed and as discussed. Definitive disposition and diagnosis as appropriate pending reevaluation and review of above. Left Ankle Pain Score (Numeric/FACES): 6 - Related Data Allergies Allergy/AdvReac Type Severity Reaction Status Date / Time No Known Allergies Allergy Verified 02/05/20 13:08 Home Meds: Home Meds Venlafaxine HCl [Venlafaxine HCl ER] 300 mg PO DAILY 04/20/18 [History] ARIPiprazole [Abilify] 10 mg PO DAILY 05/28/18 [History] Melatonin 10 mg SL BEDTIME 05/28/18 [History] Montelukast [Singulair] 10 mg PO DAILY 05/28/18 [History] Cetirizine [ZyrTEC] 10 mg PO DAILY 02/05/20 [History] ClonazePAM [KlonoPIN] 1 mg PO DAILY 02/05/20 [History] Omeprazole Magnesium [Prilosec Otc] 20 mg PO DAILY 02/05/20 [History] traZODone HCl [Trazodone HCl] 50 mg PO DAILY 02/05/20 [History] Past Medical History HEENT History: Reports: None Cardiovascular History: Reports: None Respiratory History: Reports: Asthma Gastrointestinal History: Reports: GERD Genitourinary History: Reports: None 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: Endometriosis, Polycystic Ovaries Other FORKLIFT DRIVER History: diagnostic laparoscopy Musculoskeletal History: Reports: None Neurological History: Reports: Migraines Psychiatric History: Reports: Anxiety, Depression Endocrine/Metabolic History: Reports: Hypothyroidism, Obesity/BMI 30+ Hematologic History: Reports: None Immunologic History: Reports: None Oncologic (Cancer) History: Reports: None Dermatologic History: Reports: None - Infectious Disease History Infectious Disease History: Reports: None - Past Surgical History Head Surgeries/Procedures: Reports: None Female Surgical History: Reports: None Social & Family History - Family History Family Medical History: Noncontributory Review of Systems - Review of Systems Review Of Systems: Comprehensive ROS is negative, except as noted in HPI. ED EXAM, GENERAL - Physical Exam Exam: See Below (See dictation) Course - Vital Signs Last Recorded V/S: Last Vital Signs Temp 97.3 F 02/05/20 12:55 Pulse 76 02/05/20 12:55 Resp 18 02/05/20 12:55 BP 105/65 02/05/20 12:55 Pulse Ox 98 02/05/20 12:55 - Orders/Labs/Meds Orders: Active Orders 24 hr Category Date Time Status Communication Order [RC] STAT Care 02/05/20 13:02 Active DME for Discharge [COMM] Stat Oth 02/05/20 13:38 Ordered Meds: Medications Discontinued Medications Generic Name Dose Route Start Last Admin Trade Name Freq PRN Reason Stop Dose Admin Bacitracin 1 dose 02/05/20 13:02 Bacitracin Oint 1 Gm TOP 02/05/20 13:03 ONETIME ONE Departure - Departure Time of Disposition: 13:49 Disposition: Home, Self-Care 01 Clinical Impression: Abrasion Fall Qualifiers: Encounter type: initial encounter Qualified Code(s): W19.XXXA - Unspecified fall, initial encounter Sprained ankle Qualifiers: Encounter type: initial encounter Involved ligament of ankle: unspecified ligament Laterality: right Qualified Code(s): S93.401A - Sprain of unspecified ligament of right ankle, initial encounter - Discharge Information Instructions: Ankle Sprain, [id number] Referrals: PCP,None [Primary Care Provider] - Forms: ED Department Discharge Additional Instructions: The following information is given to patients seen in the emergency department who are being discharged to home. This information is to outline your options for follow-up care. We provide all patients seen in our emergency department with a follow-up referral. The need for follow-up, as well as the timing and circumstances, are variable depending upon the specifics of your emergency department visit. If you don't have a primary care physician on staff, we will provide you with a referral. We always advise you to contact your personal physician following an emergency department visit to inform them of the circumstance of the visit and for follow-up with them and/or the need for any referrals to a consulting specialist. The emergency department will also refer you to a specialist when appropriate. This referral assures that you have the opportunity for follow-up care with a specialist. All of these measure are taken in an effort to provide you with optimal care, which includes your follow-up. Under all circumstances we always encourage you to contact your private physician who remains a resource for coordinating your care. When calling for follow-up care, please make the office aware that this follow-up is from your recent emergency room visit. If for any reason you are refused follow-up, please contact the [facility] Emergency Department at and asked to speak to the emergency department charge nurse. [facility] [address] [place] [id number] [id number] 1. Rest, ice, elevate the affected extremity. Please wear the splint and use crutches as directed. Keep the abrasion clean and dry. 2. Tylenol as needed for pain management. Diclofenac as directed; take with food. Do not take any additional NSAIDs such as ibuprofen or Aleve with this medication. 3. Follow up with the Orthopedic provider as we discussed. Return to the ED as needed and as discussed. Sepsis Event Note - Focused Exam Vital Signs: Vital Signs Temp Pulse Resp BP Pulse Ox 02/05/20 12:55 97.3 F 76 18 105/65 98 Date Exam was Performed: 02/05/20 Time Exam was Performed: 13:48 - My Orders Last 24 Hours: My Active Orders 02/05/20 13:02 Communication Order [RC] STAT 02/05/20 13:38 DME for Discharge [COMM] Stat - Assessment/Plan Last 24 Hours: My Active Orders 02/05/20 13:02 Communication Order [RC] STAT 02/05/20 13:38 DME for Discharge [COMM] Stat
--- NOTE | 2020-02-05 13:43 | CR ---
Right ankle: 3 views of the right ankle were obtained. Soft tissue swelling is noted. Several small calcifications are seen off the lateral ankle believed to represent old injury. No acute fracture, dislocation or other bony abnormality is appreciated. Impression: 1. Soft tissue swelling. 2. Findings of old injury as noted above. 3. No acute bony abnormality is appreciated. Diagnostic code #2 This report was dictated in MDT
== END 2020-02-05 14:11 | disposition home or self-care (01) ==
LOC: MW.ED 12:30
DX: S93.401A Sprain of unspecified ligament of right ankle, initial encounter (principal); S90.512A Abrasion, left ankle, initial encounter; J45.909 Unspecified asthma, uncomplicated; K21.9 Gastro-esophageal reflux disease without esophagitis; F41.9 Anxiety disorder, unspecified; F32.9 Major depressive disorder, single episode, unspecified; E03.9 Hypothyroidism, unspecified; E66.9 Obesity, unspecified; Z68.41 Body mass index [BMI] 40.0-44.9, adult; W19.XXXA Unspecified fall, initial encounter
CPT/HCPCS: 73610-26-RT; 73610-RT; 99283

== ENCOUNTER 2021-01-06 12:24 | Emergency (ER) | payer BC ==
--- NOTE | 2021-01-06 12:52 | EDM.PDOC ---
ED HPI GENERAL MEDICAL PROBLEM - General Chief Complaint: Respiratory Problem Stated Complaint: HARD TIME BREATHING Time Seen by Provider: 01/06/21 12:28 - History of Present Illness INITIAL COMMENTS - FREE TEXT/NARRATIVE: 25yoF with a h/o asthma as well as 1-1.5 ppd smoking habit who is presenting with SOB. Pt's sx started last night with nasal congestion and rhinorrhea. Today seemed to move more into her chest with nonproductive cough shortness of breath chest tightness with deep breaths. No fevers no lower extremity pain or swelling no abdominal pain. Patient took 2 puffs of an albuterol inhaler with minimal effect and so presents to the ED. No known sick contacts. She does note that her [id number] tested positive for Covid yesterday but she has not seen that person in weeks. As far as she knows she has not been around anyone has been sick. - Related Data Allergies Allergy/AdvReac Type Severity Reaction Status Date / Time No Known Allergies Allergy Verified 01/06/21 12:43 Home Meds: Home Meds Venlafaxine HCl [Venlafaxine HCl ER] 300 mg PO DAILY 04/20/18 [History] ARIPiprazole [Abilify] 10 mg PO DAILY 05/28/18 [History] Cetirizine [ZyrTEC] 10 mg PO DAILY 02/05/20 [History] traZODone HCl [Trazodone HCl] 50 mg PO DAILY 02/05/20 [History] predniSONE 40 mg PO WITHBREAKFAST #8 tab 01/06/21 [Rx] Past Medical History HEENT History: Reports: None Cardiovascular History: Reports: None Respiratory History: Reports: Asthma Gastrointestinal History: Reports: GERD Genitourinary History: Reports: None 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: Reports: Endometriosis, Polycystic Ovaries 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: diagnostic laparoscopy Musculoskeletal History: Reports: None Neurological History: Reports: Migraines Psychiatric History: Reports: Anxiety, Depression Endocrine/Metabolic History: Reports: Hypothyroidism, Obesity/BMI 30+ Hematologic History: Reports: None Immunologic History: Reports: None Oncologic (Cancer) History: Reports: None Dermatologic History: Reports: None - Infectious Disease History Infectious Disease History: Reports: None - Past Surgical History Head Surgeries/Procedures: Reports: None Female Surgical History: Reports: None Social & Family History - Family History Family Medical History: No Pertinent Family History ED ROS GENERAL - Review of Systems Review Of Systems: See Below Free Text/Narrative/Comment: General: No fever. Skin: No rash. Eyes: No vision problems. ENT: No sore throat. Neck: No neck stiffness. Respiratory: Per HPI Cardiac: Per HPI Gastrointestinal: No nausea, vomiting or abdominal pain. Musculoskeletal: No myalgias/arthralgias. Neurologic: No headache. ED EXAM, GENERAL - Physical Exam Exam: See Below Free Text/Narrative:: General Appearance: No acute distress, appears comfortable Skin: No rash HEENT: Normocephalic/atraumatic, sclera anicteric, mucous membranes moist Neck: Normal range of motion Chest and Lungs: Faint diffuse expiratory wheezing with prolonged expiratory phase Cardiovascular: Mildly tachycardic rate regular rhythm intact distal perfusion Back: Normal Musculoskeletal: No edema or tenderness Neurologic: Awake, alert, no obvious deficits, moving all extremities Psychiatric: Appropriate, cooperative #1 Interpretation EKG Date: 01/06/21 Time: 13:15 EKG Interpretation Comments: Normal sinus rhythm rate of 98 normal axis and intervals no acute ischemia Course - Vital Signs Last Recorded V/S: Last Vital Signs Temp 96.7 F L 01/06/21 12:45 Pulse 121 H 01/06/21 12:45 Resp 18 01/06/21 12:45 BP 137/85 01/06/21 12:45 Pulse Ox 96 01/06/21 12:45 - Orders/Labs/Meds Orders: Active Orders 24 hr Category Date Time Status EKG Documentation Completion [RC] STAT Care 01/06/21 13:02 Active RT Post Treatment Assessment [RC] Click to Edit Care 01/06/21 12:53 Active RT Pre-Treatment Assessment [RC] Click to Edit Care 01/06/21 12:53 Active Sodium Chloride 0.9% [Saline Flush] Med 01/06/21 13:02 Active 10 ml FLUSH ASDIRECTED PRN Sodium Chloride 0.9% [Saline Flush] Med 01/06/21 13:02 Active 2.5 ml FLUSH ASDIRECTED PRN Saline Lock Insert [OM.PC] Stat Oth 01/06/21 13:02 Ordered Medication Orders Sodium Chloride (Sodium Chloride 0.9% 10 Ml Syringe) 10 ml FLUSH ASDIRECTED PRN PRN Reason: Keep Vein Open Last Admin: 01/06/21 13:21 Dose: 10 ml Documented by: HEATHER Sodium Chloride (Sodium Chloride 0.9% 2.5 Ml Syringe) 2.5 ml FLUSH ASDIRECTED PRN PRN Reason: Keep Vein Open Last Admin: 01/06/21 13:21 Dose: 2.5 ml Documented by: HEATHER Labs: Laboratory Tests 01/06/21 01/06/21 01/06/21 Range/Units 13:08 13:08 13:08 WBC 11.91 H (4.0-11.0) K/uL RBC 4.95 (4.30-5.90) M/uL Hgb 14.6 (12.0-16.0) g/dL Hct 42.7 (36.0-46.0) % MCV 86.3 (80.0-98.0) fL MCH 29.5 (27.0-32.0) pg MCHC 34.2 (31.0-37.0) g/dL RDW Std Deviation 46.1 (28.0-62.0) fl RDW Coeff of Tarun 15 (11.0-15.0) % Plt Count 310 (150-400) K/uL MPV 9.50 (7.40-12.00) fL Neut % (Auto) 73.2 (48.0-80.0) % Lymph % (Auto) 12.5 L (16.0-40.0) % [place] % (Auto) 6.9 (0.0-15.0) % Eos % (Auto) 7.1 H (0.0-7.0) % Baso % (Auto) 0.3 (0.0-1.5) % Neut # (Auto) 8.7 H (1.4-5.7) K/uL Lymph # (Auto) 1.5 (0.6-2.4) K/uL [place] # (Auto) 0.8 (0.0-0.8) K/uL Eos # (Auto) 0.9 H (0.0-0.7) K/uL Baso # (Auto) 0.0 (0.0-0.1) K/uL D-Dimer, Quantitative 0.21 (0.0-0.50) mg/L FEU Sodium 140 (136-145) mmol/L Potassium 4.2 (3.5-5.1) mmol/L Chloride 106 (98-107) mmol/L Carbon Dioxide 25.2 (21.0-32.0) mmol/L BUN 7 (7.0-18.0) mg/dL Creatinine 0.7 (0.6-1.0) mg/dL Est Cr Clr Drug Dosing 125.01 mL/min Estimated GFR (MDRD) > 60.0 ml/min Glucose 105 (74-106) mg/dL Calcium 8.5 (8.5-10.1) mg/dL Total Bilirubin 0.2 (0.2-1.0) mg/dL AST 11 L (15-37) IU/L ALT 28 (14-63) IU/L Alkaline Phosphatase 116 (46-116) U/L Troponin I < 0.050 (0.000-0.056) ng/mL Total Protein 7.6 (6.4-8.2) g/dL Albumin 3.4 (3.4-5.0) g/dL Globulin 4.2 H (2.6-4.0) g/dL Albumin/Globulin Ratio 0.8 L (0.9-1.6) HCG, Qual (NEG) SARS-CoV-2 RNA ([place]) (NEGATIVE) 01/06/21 01/06/21 Range/Units 13:08 13:32 WBC (4.0-11.0) K/uL RBC (4.30-5.90) M/uL Hgb (12.0-16.0) g/dL Hct (36.0-46.0) % MCV (80.0-98.0) fL MCH (27.0-32.0) pg MCHC (31.0-37.0) g/dL RDW Std Deviation (28.0-62.0) fl RDW Coeff of Tarun (11.0-15.0) % Plt Count (150-400) K/uL MPV (7.40-12.00) fL Neut % (Auto) (48.0-80.0) % Lymph % (Auto) (16.0-40.0) % [place] % (Auto) (0.0-15.0) % Eos % (Auto) (0.0-7.0) % Baso % (Auto) (0.0-1.5) % Neut # (Auto) (1.4-5.7) K/uL Lymph # (Auto) (0.6-2.4) K/uL [place] # (Auto) (0.0-0.8) K/uL Eos # (Auto) (0.0-0.7) K/uL Baso # (Auto) (0.0-0.1) K/uL D-Dimer, Quantitative (0.0-0.50) mg/L FEU Sodium (136-145) mmol/L Potassium (3.5-5.1) mmol/L Chloride (98-107) mmol/L Carbon Dioxide (21.0-32.0) mmol/L BUN (7.0-18.0) mg/dL Creatinine (0.6-1.0) mg/dL Est Cr Clr Drug Dosing mL/min Estimated GFR (MDRD) ml/min Glucose (74-106) mg/dL Calcium (8.5-10.1) mg/dL Total Bilirubin (0.2-1.0) mg/dL AST (15-37) IU/L ALT (14-63) IU/L Alkaline Phosphatase (46-116) U/L Troponin I (0.000-0.056) ng/mL Total Protein (6.4-8.2) g/dL Albumin (3.4-5.0) g/dL Globulin (2.6-4.0) g/dL Albumin/Globulin Ratio (0.9-1.6) HCG, Qual NEGATIVE (NEG) SARS-CoV-2 RNA ([place]) NEGATIVE (NEGATIVE) Meds: Medications Generic Name Dose Route Start Last Admin Trade Name Freq PRN Reason Stop Dose Admin Sodium Chloride 10 ml 01/06/21 13:02 01/06/21 13:21 Sodium Chloride 0.9% 10 Ml Syringe FLUSH 10 ml ASDIRECTED PRN Administration Keep Vein Open Sodium Chloride 2.5 ml 01/06/21 13:02 01/06/21 13:21 Sodium Chloride 0.9% 2.5 Ml Syringe FLUSH 2.5 ml ASDIRECTED PRN Administration Keep Vein Open Discontinued Medications Generic Name Dose Route Start Last Admin Trade Name Freq PRN Reason Stop Dose Admin Albuterol 8 gm 01/06/21 12:53 01/06/21 13:21 Albuterol Hfa 18 Gm Inhaler INH 01/06/21 12:54 Not Given NOW STA Albuterol Confirm 01/06/21 13:13 01/06/21 13:20 Albuterol 8 Gm Inhaler Administered 01/06/21 13:14 8 gm Dose Administration 8 gm INH .STK-MED ONE Methylprednisolone Sodium Succinate 80 mg 01/06/21 13:04 01/06/21 13:15 Methylprednisolone Sodium Succinate 40 Mg/1 Ml Sdv IVPUSH 01/06/21 13:05 80 mg ONETIME ONE Administration Prednisone 60 mg 01/06/21 12:54 01/06/21 13:21 Prednisone 20 Mg Tab PO 01/06/21 12:55 Not Given ONETIME ONE Departure - Departure Time of Disposition: 14:41 Disposition: Home, Self-Care 01 Condition: Good Clinical Impression: Viral URI, Asthma exacerbation - Discharge Information *PRESCRIPTION DRUG MONITORING PROGRAM REVIEWED*: Not Applicable *COPY OF PRESCRIPTION DRUG MONITORING REPORT IN PATIENT JAN: Not Applicable Prescriptions: predniSONE 40 mg PO WITHBREAKFAST #8 tab Instructions: Upper Respiratory Infection, Adult, [id number], Asthma, Adult Referrals: Emiliana Silva, [Primary Care Provider] - Forms: ED Department Discharge Additional Instructions: Please do which you can to cut down your cigarette use is much as possible over the next few days. Please take 2 puffs from your albuterol inhaler every 4-6 hours while you are awake. Please start your steroid prescription tomorrow morning. If you find that you are consistently needing your inhaler more frequently than every 4 hours or if it is no longer helping your breathing please return to the ER. The following information is given to patients seen in the emergency department who are being discharged to home. This information is to outline your options for follow-up care. We provide all patients seen in our emergency department with a follow-up referral. The need for follow-up, as well as the timing and circumstances, are variable depending upon the specifics of your emergency department visit. If you don't have a primary care physician on staff, we will provide you with a referral. We always advise you to contact your personal physician following an emergency department visit to inform them of the circumstance of the visit and for follow-up with them and/or the need for any referrals to a consulting specialist. The emergency department will also refer you to a specialist when appropriate. This referral assures that you have the opportunity for follow-up care with a specialist. All of these measure are taken in an effort to provide you with optimal care, which includes your follow-up. Under all circumstances we always encourage you to contact your private physician who remains a resource for coordinating your care. When calling for follow-up care, please make the office aware that this follow-up is from your recent emergency room visit. If for any reason you are refused follow-up, please contact the [facility] Emergency Department at and asked to speak to the emergency department charge nurse. Sepsis Event Note (ED) - Focused Exam Vital Signs: Vital Signs Temp Pulse Resp BP Pulse Ox 01/06/21 12:45 96.7 F L 121 H 18 137/85 96 01/06/21 12:30 96 17 123/82 97 - My Orders Last 24 Hours: My Active Orders 01/06/21 12:53 RT Post Treatment Assessment [RC] Click to Edit RT Pre-Treatment Assessment [RC] Click to Edit 01/06/21 13:02 EKG Documentation Completion [RC] STAT Sodium Chloride 0.9% [Saline Flush] 10 ml FLUSH ASDIRECTED PRN Sodium Chloride 0.9% [Saline Flush] 2.5 ml FLUSH ASDIRECTED PRN Saline Lock Insert [OM.PC] Stat - Assessment/Plan Last 24 Hours: My Active Orders 01/06/21 12:53 RT Post Treatment Assessment [RC] Click to Edit RT Pre-Treatment Assessment [RC] Click to Edit 01/06/21 13:02 EKG Documentation Completion [RC] STAT Sodium Chloride 0.9% [Saline Flush] 10 ml FLUSH ASDIRECTED PRN Sodium Chloride 0.9% [Saline Flush] 2.5 ml FLUSH ASDIRECTED PRN Saline Lock Insert [OM.PC] Stat Assessment:: 25-year-old female presenting with signs and symptoms that are most consistent with asthma exacerbation due to viral URI. Covid considered and swab will be sent. However, patient is not hypoxic she does not qualify for admission or Decadron so we will proceed with prednisone as well as 4 puffs from an albuterol inhaler. Chest x-ray to exclude focal pneumonia and further evaluate for Covid. Given the clear preceding nasal congestion and rhinorrhea I do not believe this represents PE or ACS. However, given significant tachycardia without profound wheezing on exam EKG, labs and d-dimer ordered. Nothing suggest aortic dissection. Pneumothorax considered as well I think is very unlikely but chest x-ray would reveal this. 1440: Labs and chest x-ray are good Covid negative. Patient has a viral URI leading to asthma exacerbation. On reassessment patient's lungs are clear she is moving air well she feels much much better. Her vital signs are good. Given this no indication for admission. We did discuss cutting back her cigarette use patient discharged with steroids and scheduled albuterol.
[2021-01-06] MEDS ORDERED: Albuterol HFA 18 Gm Inhaler INH STA (12:53)
[2021-01-06] MEDS ORDERED: predniSONE 20 MG Tab PO ONE (12:54)
[2021-01-06] MEDS ORDERED: Sodium Chloride 0.9% 10 ML Syringe FLUSH PRN (13:02)
[2021-01-06] MEDS ORDERED: Sodium Chloride 0.9% 2.5 ML Syringe FLUSH PRN (13:02)
[2021-01-06] MEDS ORDERED: methylPREDNISolone Sodium Succinate 40 MG/1 ML SDV IVPUSH ONE (13:04)
[2021-01-06] MEDS: Albuterol 8 GM Inhaler INH ONE ×2 (13:16→13:20)
[2021-01-06 13:39] LABS: BLOOD UREA NITROGEN,BUN 7 mg/dL (7.0-18.0); CARBON DIOXIDE,CO2 25.2 mmol/L (21.0-32.0); CHLORIDE,CL 106 mmol/L (98-107); GLUCOSE RANDOM 105 mg/dL (74-106); POTASSIUM,K 4.2 mmol/L (3.5-5.1); SODIUM,NA 140 mmol/L (136-145)
--- NOTE | 2021-01-06 14:24 | CR ---
INDICATION: Dyspnea. TECHNIQUE: Chest 1 view. COMPARISON: None. FINDINGS: No focal consolidation, pleural effusion, or pneumothorax. Normal heart size and pulmonary vascularity. The bones are unremarkable. IMPRESSION: No acute cardiopulmonary findings. Dictated by Julia Hoffman MD @ Jan 06 2021 2:21PM Signed by Dr. Julia Hoffman @ Jan 06 2021 2:22PM
== END 2021-01-06 14:57 | disposition home or self-care (01) ==
LOC: MW.ED 12:24
DX: J45.901 Unspecified asthma with (acute) exacerbation (principal); J06.9 Acute upper respiratory infection, unspecified; Z20.822 Contact with and (suspected) exposure to COVID-19; Z87.891 Personal history of nicotine dependence
CPT/HCPCS: 36415; 71045; 80053; 84484; 84703; 85025; 85379; 87635; 93005; 96374; 99285; A9270; J2920; 93010; 99284; J3535-GY; U0002

== ENCOUNTER 2022-03-02 17:45 | Emergency (ER) | payer BC ==
[2022-03-02] MEDS ORDERED: Ibuprofen 600 MG Tab PO ONE (18:44)
== END 2022-03-02 19:27 | disposition home or self-care (01) ==
LOC: MW.ED 17:45
DX: S92.101A Unspecified fracture of right talus, initial encounter for closed fracture (principal); E66.9 Obesity, unspecified; Z68.41 Body mass index [BMI] 40.0-44.9, adult; Z79.899 Other long term (current) drug therapy; X58.XXXA Exposure to other specified factors, initial encounter
CPT/HCPCS: 29515; 73610; 99283; A9270

== ENCOUNTER 2022-05-07 15:34 | Emergency (ER) | payer BC ==
[2022-05-07] MEDS ORDERED: Albuterol/Ipratropium 3.0-0.5 MG/3 ML Neb Soln NEB ONE (16:23)
[2022-05-07] MEDS ORDERED: Budesonide 0.5 MG/2 ML Neb Susp NEB ONE (16:23)
== END 2022-05-07 17:25 | disposition home or self-care (01) ==
LOC: MW.ED 15:34
DX: J45.21 Mild intermittent asthma with (acute) exacerbation (principal); K21.9 Gastro-esophageal reflux disease without esophagitis; Z79.899 Other long term (current) drug therapy
CPT/HCPCS: 99284; J7620-GY

== ENCOUNTER 2022-10-11 13:49 | Emergency (ER) | payer BC, MEDICAID ==
[2022-10-11] MEDS ORDERED: metroNIDAZOLE 250 MG Tab PO ONE (16:34)
[2022-10-11 16:45] LABS: C. TRACHOMATIS BY PCR NOT DETECTED; N. GONORRHOEAE BY PCR NOT DETECTED
== END 2022-10-11 17:29 | disposition home or self-care (01) ==
LOC: MW.ED 13:49
DX: G56.01 Carpal tunnel syndrome, right upper limb (principal); N76.0 Acute vaginitis; B96.89 Other specified bacterial agents as the cause of diseases classified elsewhere; B37.9 Candidiasis, unspecified; A59.01 Trichomonal vulvovaginitis; J45.909 Unspecified asthma, uncomplicated; E66.9 Obesity, unspecified; Z68.42 Body mass index [BMI] 45.0-49.9, adult; Z72.52 High risk homosexual behavior; Z91.040 Latex allergy status; Z79.899 Other long term (current) drug therapy
CPT/HCPCS: 81001; 81025; 87480; 87491; 87510; 87591; 87660; 99284; A9270; 99283

== ENCOUNTER 2023-10-17 14:06 | Emergency (ER) | payer SELFPAY ==
[2023-10-17 16:26] LABS: CANDIDA DNA PROBE NEGATIVE (NEGATIVE); GARDNERELLA DNA PROBE POSITIVE (NEGATIVE); TRICHOMONAS DNA PROBE NEGATIVE (NEGATIVE)
[2023-10-20 11:07] LABS: C.TRACHOMATIS BY TMA Negative (Negative); N.GONORRHOEAE BY TMA Negative (Negative); SOURCE GENITAL
== END 2023-10-17 16:55 | disposition home or self-care (01) ==
LOC: MW.ED 14:06
DX: G56.03 Carpal tunnel syndrome, bilateral upper limbs (principal); Z11.3 Encounter for screening for infections with a predominantly sexual mode of transmission; J45.909 Unspecified asthma, uncomplicated; E66.9 Obesity, unspecified; Z79.899 Other long term (current) drug therapy; Z91.040 Latex allergy status; Z68.41 Body mass index [BMI] 40.0-44.9, adult
CPT/HCPCS: 36415; 87389; 87480; 87491; 87510; 87591; 87660; 99283; 99284

== ENCOUNTER 2024-08-20 22:16 | Emergency (ER) | payer OTHER ==
[2024-08-21] MEDS: Ondansetron 4 MG/2 ML SDV IVPUSH ONE (00:24)
[2024-08-21] MEDS: Sodium Chloride 0.9% 1,000 ML IV ONE (00:24)
[2024-08-21 00:28] LABS: BASOPHILS ABSOLUTE AUTO 0.05 K/uL (0.00-0.20); BASOPHILS PERCENT AUTO 0.5 % (0.0-1.0); EOSINOPHILS ABSOLUTE AUTO 0.32 K/uL (0.00-0.45); EOSINOPHILS PERCENT AUTO 2.9 % (0.0-6.0); HEMATOCRIT 40.4 % (37.0-47.0); HEMOGLOBIN 14.3 g/dL (12.0-16.0); IMMATURE GRAN ABSOLUTE AUTO 0.04 K/uL (0.00-0.05); IMMATURE GRAN PERCENT AUTO 0.4 % (0.0-0.4); LYMPHOCYTES ABSOLUTE AUTO 2.94 K/uL (1.00-4.80); LYMPHOCYTES PERCENT AUTO 27.1 % (24.0-44.0); MEAN CORPUSCULAR HEMOGLOBIN 32.2 pg (28.0-32.0); MEAN CORPUSCULAR HGB CONC 35.4 g/dL (32.0-36.0); MEAN PLATELET VOLUME 9.6 fL (9.4-12.3); MONOCYTES ABSOLUTE AUTO 1.12 K/uL (0.00-0.80); MONOCYTES PERCENT AUTO 10.3 % (0.0-8.0); NEUTROPHILS ABSOLUTE AUTO 6.38 K/uL (1.80-7.70); NEUTROPHILS PERCENT AUTO 58.8 % (41.0-71.0); PLATELET COUNT,PLT 325 K/uL (150-400); RED BLOOD CELL COUNT 4.44 M/uL (4.10-5.30); WHITE BLOOD CELL COUNT,WBC 10.85 K/uL (3.9-11.3)
[2024-08-21 00:49] LABS: A/G RATIO 1.1 (0.9-1.6); ALANINE AMINOTRANSFERASE,ALT 20 IU/L (14-63); ALBUMIN 3.5 g/dL (3.4-5.0); ALKALINE PHOSPHATASE 81 U/L (46-116); ASPARTATE AMNIOTRANSFERASE,AST 14 IU/L (15-37); BILIRUBIN TOTAL 0.2 mg/dL (0.2-1.0); BLOOD UREA NITROGEN,BUN 11 mg/dL (7.0-18.0); C-REACTIVE PROTEIN 0.13 mg/dL (<0.3); CALCIUM 8.8 mg/dL (8.5-10.1); CARBON DIOXIDE,CO2 30.1 mmol/L (21.0-32.0); CHLORIDE,CL 106 mmol/L (98-107); CREATININE 0.7 mg/dL (0.6-1.0); GLUCOSE RANDOM 85 mg/dL (74-106); POTASSIUM,K 3.5 mmol/L (3.5-5.1); PROTEIN TOTAL,TP 6.7 g/dL (6.4-8.2); SODIUM,NA 143 mmol/L (136-145)
[2024-08-21 00:52] LABS: ESTIMATED GFR 121 mL/min (>60)
[2024-08-21] MEDS: Iopamidol 755 MG/ML 500 ML Multipack Bottle IVPUSH ONE (01:29)
[2024-08-21 02:53] LABS: APPEARANCE,URINE CLEAR; BILIRUBIN,URINE NEGATIVE (NEGATIVE); COLOR,URINE YELLOW; GLUCOSE,URINE NEGATIVE (NEGATIVE); KETONES,URINE NEGATIVE (NEGATIVE); LEUKOCYTE ESTERASE,URINE NEGATIVE (NEGATIVE); NITRITE,URINE NEGATIVE (NEGATIVE); OCCULT BLOOD,URINE NEGATIVE (NEGATIVE); PH,URINE 5.5 (5.0-8.0); PROTEIN,URINE NEGATIVE (NEGATIVE); UROBILINOGEN,URINE 0.2 EU/dL (<2.0)
[2024-08-21 03:08] LABS: CANDIDA DNA PROBE NEGATIVE (NEGATIVE); GARDNERELLA DNA PROBE NEGATIVE (NEGATIVE); TRICHOMONAS DNA PROBE NEGATIVE (NEGATIVE)
[2024-08-21 03:40] LABS: C. TRACHOMATIS BY PCR NOT DETECTED; N. GONORRHOEAE BY PCR NOT DETECTED
== END 2024-08-21 04:05 | disposition home or self-care (01) ==
LOC: MW.ED 22:16
DX: R10.2 Pelvic and perineal pain (principal); J45.909 Unspecified asthma, uncomplicated; E66.9 Obesity, unspecified; F17.210 Nicotine dependence, cigarettes, uncomplicated; Z91.040 Latex allergy status; Z79.51 Long term (current) use of inhaled steroids; Z79.899 Other long term (current) drug therapy
CPT/HCPCS: 36415; 74177; 76830; 80053; 81003; 84702; 85025; 86140; 87480; 87491; 87510; 87591; 87660; 96374; 99284; J2405; J7030; Q9967

== ENCOUNTER 2025-03-10 12:16 | Emergency (ER) | payer OTHER ==
[2025-03-10] MEDS: Diphtheria,Pertussis(Acell),Tetanus Vaccine 0.5 ML Syringe IM ONE (17:25)
[2025-03-10] MEDS: Amoxicillin/Clavulanate K 875-125 MG Tab PO ONE (17:25)
== END 2025-03-10 17:35 | disposition home or self-care (01) ==
LOC: MW.ED 12:16
DX: S61.250A Open bite of right index finger without damage to nail, initial encounter (principal); S61.251A Open bite of left index finger without damage to nail, initial encounter; Z23 Encounter for immunization; Z91.010 Allergy to peanuts; Z79.51 Long term (current) use of inhaled steroids; Z79.899 Other long term (current) drug therapy; W54.0XXA Bitten by dog, initial encounter; Y93.89 Activity, other specified
CPT/HCPCS: 90471; 90715; 99283; A9270; 99282